=== PATIENT | male | born 1940 | race Caucasian/White ===

== ENCOUNTER → 2017-05-23 | Outpatient (CLI) | payer MEDICARE ==
[~2017-05-23] MED LIST: AMOX-291 PO; ASPI325T17 PO; CLAR500T PO; DENO60DI IM; EZET10TA18 PO; GADOBUTROL 10 MMOL/10 ML VIAL ONE; LEVO25TA2 PO; LIOT5TAB10 PO; PANT40TA3 PO; POTA15TA9 PO; TRIA1TAB3 PO; VALA1000 PO; [UNRECOGNIZED DRUG - CODE] PO
== END | disposition home or self-care (01) ==
LOC: CFH 07:49
PROVIDERS: ATTEND Nurse Practitioner
DX: D32.0 Benign neoplasm of cerebral meninges (principal)
CPT/HCPCS: 70553; A9585

== ENCOUNTER 2017-06-24 14:46 | Inpatient (IN) | payer MEDICARE ==
[~2017-06-24] VITALS: Ht 180.3 cm; Wt 90.0 kg
[~2017-06-24 14:46] MED LIST changes: -GADOBUTROL 10 MMOL/10 ML VIAL ONE
[2017-06-24] MEDS ORDERED: PLEASE ENTER HEIGHT AND WEIGHT MC SCH (15:00)
[2017-06-24] MEDS ORDERED: SODIUM CHLORIDE FLUSH 10ML SYR IVF ONE (15:00)
[2017-06-24 15:54] LABS: BASOPHILS # (AUTO) 0.04 x10^3/uL (0-0.1); BASOPHILS % (AUTO) 1 % (0-1); EOSINOPHILS % (AUTO) 2 % (1-7); LYMPHOCYTES # (AUTO) 1.15 x10^3/uL (1-3.4); LYMPHOCYTES % (AUTO) 19 % (22-44); MD NO; MEAN CORPUSCULAR HEMOGLOBIN 31.3 pg (27.5-34.5); MEAN CORPUSCULAR HGB CONC 33.2 g/dL (33.2-36.2); MEAN CORPUSCULAR VOLUME 94.2 fL (81-97); MEAN PLATELET VOLUME 9.2 fL (7.4-10.4); MONOCYTES # (AUTO) 0.79 x10^3/uL (0.2-0.8); MONOCYTES % (AUTO) 13 % (2-9); NEUTROPHILS % (AUTO) 66 % (42-75); PLATELET COUNT 206 x10^3/uL (130-400); RED BLOOD COUNT 5.23 x10^6/uL (4.38-5.82); RED CELL DISTRIBUTION WIDTH 14.6 % (9.4-14.8)
[2017-06-24 15:59] LABS: INTERNATIONAL NORMALIZED RATIO 1.01 (0.93-1.1); PROTHROMBIN TIME 10.5 Seconds (9.6-11.5)
[2017-06-24 16:03] LABS: ALANINE AMINOTRANSFERASE 26 U/L (12-78); ALBUMIN 3.8 g/dL (3.4-5.0); ANION GAP 10 mmol/L (5-15); CALCIUM 8.8 mg/dL (8.5-10.1); CHLORIDE 108 mmol/L (98-107); CREATININE 1.24 mg/dL (0.7-1.3)
[2017-06-24 16:07] LABS: ALKALINE PHOSPHATASE 53 U/L (45-117)
[2017-06-24 16:10] LABS: TROPONIN I 0.179 ng/mL (0.000-0.045)
[2017-06-24] MEDS ORDERED: HEPARIN 5,000 UNITS/ML, 1ML ONE (16:14)
[2017-06-24] MEDS ORDERED: HEPARIN 25,000 UNITS/500ML PMX 500 ML ONE (16:14)
[2017-06-24] MEDS ORDERED: NITROGLYCERIN 0.4 MG BOTTLE (25 TABS) SL PRN (16:30)
[2017-06-24] MEDS ORDERED: BISACODYL 5 MG EC TABLET PO PRN (16:30)
[2017-06-24] MEDS ORDERED: ASPIRIN 325 MG TABLET EC PO ONE (16:30)
[2017-06-24] MEDS ORDERED: HEPARIN 5,000 UNITS/ML, 1ML IV ONE (16:30)
[2017-06-24] MEDS ORDERED: NITROGLYCERIN 0.4 MG/SPRAY SL PRN (16:30)
[2017-06-24] MEDS ORDERED: HEPARIN 25,000 UNITS/500ML PMX 500 ML IV PRN (16:30)
[2017-06-24] MEDS ORDERED: HEPARIN 5,000 UNITS/ML, 1ML IV PRN (16:30)
[2017-06-24] MEDS ORDERED: ZOLPIDEM 5MG TABLET PO PRN (16:30)
[2017-06-24] MEDS ORDERED: ACETAMINOPHEN 650 MG/20.3 ML UDC PO PRN (16:30)
[2017-06-24] MEDS ORDERED: morphine SULFATE 10 MG/ML, 1ML IV PRN (16:30)
[2017-06-24] MEDS ORDERED: FENTANYL PF 100 MCG/2ML ONE (16:33)
[2017-06-24] MEDS ORDERED: TICAGRELOR 90 MG TABLET ONE (16:33)
[2017-06-24] MEDS ORDERED: MIDAZOLAM 1 MG/ML, 5ML ONE (16:33)
[2017-06-24] MEDS ORDERED: BIVALIRUDIN 250 MG ONE ×2 (16:34→17:20)
[2017-06-24] MEDS ORDERED: HEPARIN 1,000 UNITS/ML, 10ML ONE (16:34)
[2017-06-24] MEDS ORDERED: LIDOCAINE 2%, 2ML ONE (16:34)
[2017-06-24] MEDS ORDERED: VERAPAMIL 2.5 MG/ML, 2ML ONE (16:34)
[2017-06-24 16:38] LABS: CHOLESTEROL, TOTAL 157 mg/dL (140-239); TRIGLYCERIDES 73 mg/dL (50-200); VLDL CHOLESTEROL 15 mg/dL (0-25)
[2017-06-24 16:39] LABS: CHOL/HDL RATIO 3.2; HDL CHOL % 31 % (26-37); HDL CHOLESTEROL (DIRECT) 49 mg/dL (40-60); LDL CHOLESTEROL,CALCULATED 93 mg/dL (54-169); LDL/HDL RATIO 1.9 (0.5-3.0)
[2017-06-24] MEDS ORDERED: ASPIRIN 325 MG TABLET EC ONE (17:20)
[2017-06-24] MEDS ORDERED: BIVALIRUDIN 250 MG in DEXTROSE 5% 50 ML IV SCH (17:45)
[2017-06-24 17:50] VITALS: BP 126/78
[2017-06-24] MEDS: SODIUM CHLORIDE FLUSH 10ML SYR IVF SCH (20:40)
[2017-06-24] MEDS: LIOTHYRONINE 5 MCG TABLET PO SCH (20:41)
[2017-06-24] MEDS: METOPROLOL TARTRATE 25 MG TABLET PO SCH (20:41)
[2017-06-24] MEDS: SIMVASTATIN 20 MG TABLET PO SCH (20:41)
[2017-06-24] MEDS: VALACYCLOVIR 500MG TABLET PO SCH (20:41)
[2017-06-24 20:45] VITALS: BP 142/69
[2017-06-25 01:32] VITALS: BP 108/72
[2017-06-25] MEDS: LEVOTHYROXINE 150 MCG TABLET PO SCH (05:54)
[2017-06-25] MEDS: TICAGRELOR 90 MG TABLET PO SCH ×2 (05:54→17:01)
[2017-06-25] MEDS ORDERED: ASPIRIN 325 MG TABLET EC PO SCH (06:00)
[2017-06-25 06:14] LABS: ALBUMIN 3.1 g/dL (3.4-5.0); ANION GAP 8 mmol/L (5-15); CALCIUM 8.5 mg/dL (8.5-10.1); CHLORIDE 108 mmol/L (98-107)
[2017-06-25 08:31] VITALS: BP 129/82
[2017-06-25] MEDS: LIOTHYRONINE 5 MCG TABLET PO SCH ×3 (08:47→21:08)
[2017-06-25] MEDS: SODIUM CHLORIDE FLUSH 10ML SYR IVF SCH ×2 (08:47→21:09)
[2017-06-25] MEDS: PANTOPROZOLE 40MG TABLET PO SCH (08:47)
[2017-06-25] MEDS: ASPIRIN 81 MG TABLET EC PO SCH (08:47)
[2017-06-25] MEDS: METOPROLOL TARTRATE 25 MG TABLET PO SCH ×2 (08:47→21:08)
[2017-06-25] MEDS: EZETIMIBE 10 MG TABLET PO SCH (08:47)
[2017-06-25 13:27] VITALS: BP 148/69
[2017-06-25 19:48] VITALS: BP 139/63
[2017-06-25] MEDS: SIMVASTATIN 20 MG TABLET PO SCH (21:08)
[2017-06-25] MEDS: VALACYCLOVIR 500MG TABLET PO SCH (21:09)
[2017-06-26 01:04] VITALS: BP 113/65
[2017-06-26] MEDS: TICAGRELOR 90 MG TABLET PO SCH (06:19)
[2017-06-26] MEDS: LEVOTHYROXINE 150 MCG TABLET PO SCH (06:19)
[2017-06-26 07:49] VITALS: BP 138/66
[2017-06-26] MEDS ORDERED: TICA90TA PO (09:10)
[2017-06-26] MEDS ORDERED: NITR0.4T SL (09:10)
[2017-06-26] MEDS ORDERED: ASPI-621 PO (09:10)
[2017-06-26] MEDS ORDERED: METO25TA35 PO (09:10)
[2017-06-26] MEDS ORDERED: ROSU10TA PO (09:10)
[2017-06-26] MEDS: METOPROLOL TARTRATE 25 MG TABLET PO SCH (09:29)
[2017-06-26] MEDS: PANTOPROZOLE 40MG TABLET PO SCH (09:29)
[2017-06-26] MEDS: EZETIMIBE 10 MG TABLET PO SCH (09:29)
[2017-06-26] MEDS: ASPIRIN 81 MG TABLET EC PO SCH (09:29)
[2017-06-26] MEDS: LIOTHYRONINE 5 MCG TABLET PO SCH (09:29)
[2017-06-26] MEDS: SODIUM CHLORIDE FLUSH 10ML SYR IVF SCH (09:30)
== END 2017-06-26 13:40 | disposition home or self-care (01) | DRG 246 ==
LOC: ED 16:02 → EDIP 16:03 → ED 17:31 → 5SO 17:40
PROVIDERS: ADMIT Internal Medicine Cardiovascular Disease; ATTEND Internal Medicine Cardiovascular Disease
PROC: 027034Z Dilation of Coronary Artery, One Artery with Drug-eluting Intraluminal Device, Percutaneous Approach (ICD-10-PCS; principal; 2017-06-24)
PROC: B2111ZZ Fluoroscopy of Multiple Coronary Arteries using Low Osmolar Contrast (ICD-10-PCS; 2017-06-24)
PROC: 4A023N7 Measurement of Cardiac Sampling and Pressure, Left Heart, Percutaneous Approach (ICD-10-PCS; 2017-06-24)
DX: I21.4 Non-ST elevation (NSTEMI) myocardial infarction (principal); I50.31 Acute diastolic (congestive) heart failure; I34.0 Nonrheumatic mitral (valve) insufficiency; I35.1 Nonrheumatic aortic (valve) insufficiency; I11.0 Hypertensive heart disease with heart failure; I07.1 Rheumatic tricuspid insufficiency; E78.5 Hyperlipidemia, unspecified; E89.0 Postprocedural hypothyroidism; I25.110 Atherosclerotic heart disease of native coronary artery with unstable angina pectoris; Z82.49 Family history of ischemic heart disease and other diseases of the circulatory system; Z85.850 Personal history of malignant neoplasm of thyroid; Z87.442 Personal history of urinary calculi; Z87.891 Personal history of nicotine dependence; Z90.49 Acquired absence of other specified parts of digestive tract
CPT/HCPCS: 36415; 71045; 80048; 80053; 80061; 82040; 84484; 85025; 85520; 85610; 85730; 93005; 93306; 93454; 96374; 99156; 99157; C1769; C1894; J0583; J1644; J2250; J3010; J3490; C1725; C1874; C1887; Q9967

== ENCOUNTER → 2018-05-22 | Outpatient (CLI) | payer MEDICARE ==
[~2018-05-22] MED LIST changes: +ASPI81TA45 PO; +METO25TA35 PO; +NITR0.4T SL; +ROSU10TA2 PO; +TICA90TA PO
== END | disposition home or self-care (01) ==
LOC: CVU 13:24
PROVIDERS: ATTEND Internal Medicine Cardiovascular Disease
DX: I70.213 Atherosclerosis of native arteries of extremities with intermittent claudication, bilateral legs (principal)
CPT/HCPCS: 93922

== ENCOUNTER → 2019-06-11 | Outpatient (CLI) | payer MEDICARE ==
[~2019-06-11] MED LIST changes: +CLAR-14 PO; -CLAR500T PO; -EZET10TA18 PO; +EZET10TA70 PO; -NITR0.4T SL; +NITR0.4T41 SL; +OMNIPAQUE 350 MG/ML, 100ML BOTTLE ONE; -VALA1000 PO; +VALA10007 PO
== END | disposition home or self-care (01) ==
LOC: CFH 10:04
PROVIDERS: ATTEND Physician Assistant Surgical
DX: D49.2 Neoplasm of unspecified behavior of bone, soft tissue, and skin (principal)
CPT/HCPCS: 71260; 74177; 82565; Q9967

== ENCOUNTER 2019-08-17 10:13 | Outpatient (CLI) | payer MEDICARE ==
[~2019-08-17 10:13] MED LIST changes: -OMNIPAQUE 350 MG/ML, 100ML BOTTLE ONE
== END 2019-08-17 23:59 | disposition home or self-care (01) ==
LOC: CARD 10:13
PROVIDERS: ATTEND Physician Assistant Surgical
DX: M79.661 Pain in right lower leg (principal); M79.662 Pain in left lower leg
CPT/HCPCS: 95886; 95909